=== PATIENT | male | born 1970 | race Two or more races ===

== ENCOUNTER 2019-04-03 16:16 | Emergency (ER) | payer OTHER ==
[~2019-04-03] VITALS: Ht 170.2 cm; Wt 70.0 kg
[2019-04-03] MEDS ORDERED: SODIUM CHLORIDE 0.9% 1,000 ML IV ONE (18:09)
[2019-04-03] MEDS ORDERED: BACITRACIN ZINC OINT UDPKT TOP ONE (18:15)
[2019-04-03] MEDS ORDERED: LIDOCAINE 1%/EPI 1:100,000 10 ML VIAL IJ ONE (18:15)
[2019-04-03] MEDS ORDERED: TETANUS, DIPHTHERIA, PERTUSSIS VAC/PF 0.5ML (>7YR OLD) IM ONE (18:15)
[2019-04-03 19:01] LABS: BASOPHILS % 0.7 % (0.0-2.0); EOSINOPHILS % 0.3 % (0.0-5.0); HEMATOCRIT. 45.4 % (42.0-52.0); HEMOGLOBIN. 15.1 g/dL (14.0-18.0); LYMPHOCYTES % 21.5 % (20.0-50.0); MEAN CORPUSCULAR HEMOGLOBIN 32.2 pg (28.0-32.0); MEAN PLATELET VOLUME 7.9 fl (7.4-10.4); MONOCYTES % 7.3 % (2.0-8.0); NEUTROPHILS % 70.2 % (40.0-76.0); PLATELET 269 x1000/uL (130-400); RED BLOOD CELL COUNT 4.68 mill/uL (4.7-6.1); RED CELL DISTRIBUTION WIDTH 14.9 % (11.6-14.6)
[2019-04-03 19:08] LABS: CHLORIDE 105 mEq/L (98-107)
[2019-04-03] MEDS ORDERED: LIDOCAINE HCL/PF 1% 10 MG/ML 5ML VIAL IJ ONE (19:30)
[2019-04-03] MEDS ORDERED: BACITRACIN ZINC OINT UDPKT TOP SCH (19:30)
[2019-04-03] MEDS ORDERED: LIDOCAINE HCL/EPINEPHRINE 1%-EPI 1:100,000 20 ML VIAL IJ SCH (19:30)
[2019-04-03] MEDS ORDERED: BACITRACIN 15GM TUBE TOP SCH (19:45)
[2019-04-04 01:29] VITALS: BP 118/76
== END 2019-04-04 01:40 ==
LOC: ER 16:16
DX: S01.81XA Laceration without foreign body of other part of head, initial encounter (principal); F32.9 Major depressive disorder, single episode, unspecified; R56.9 Unspecified convulsions; Z98.890 Other specified postprocedural states; W06.XXXA Fall from bed, initial encounter; Y93.89 Activity, other specified; Y92.89 Other specified places as the place of occurrence of the external cause; Y99.8 Other external cause status
CPT/HCPCS: 12013; 36415; 70450; 72125; 80053; 82962; 85025; 90471; 90715; 93005; 96360; 96361; 99285; J3490; J7030

== ENCOUNTER 2019-11-08 15:28 | Emergency (ER) | payer MEDICAID, OTHER ==
[~2019-11-08] VITALS: Ht 162.6 cm; Wt 68.0 kg
[2019-11-08 18:59] LABS: HEMATOCRIT. 38.9 % (42.0-52.0); HEMOGLOBIN. 13.6 g/dL (14.0-18.0); MEAN CORPUSCULAR HEMOGLOBIN 32.7 pg (28.0-32.0); MEAN CORPUSCULAR VOLUME 93.5 fL (80.0-94.0); MEAN PLATELET VOLUME 7.4 fl (7.4-10.4); PLATELET 473 x1000/uL (130-400); RED BLOOD CELL COUNT 4.16 mill/uL (4.7-6.1); RED CELL DISTRIBUTION WIDTH 14.9 % (11.6-14.6)
[2019-11-08 19:05] LABS: CHLORIDE 108 mEq/L (98-107)
[2019-11-08 19:09] LABS: ETHANOL BLOOD < 10 mg/dL
[2019-11-08 20:10] LABS: PLATELET ESTIMATE INCREASED
[2019-11-09 11:02] VITALS: BP 129/73
== END 2019-11-09 10:50 | disposition home or self-care (01) ==
LOC: ER 15:28
DX: F10.129 Alcohol abuse with intoxication, unspecified (principal); Z98.890 Other specified postprocedural states; Z59.0 Homelessness
CPT/HCPCS: 36415; 80053; 80320; 85025; 99285; G0480